=== PATIENT | female | born 2000 | race Two or more races ===

== ENCOUNTER 2023-01-03 13:17 | Emergency (ER) | payer OTHER ==
[2023-01-03 14:17] LABS: #Eosinphils 0.1 thou/uL (0.0-0.7); #Monocytes 0.6 thou/uL (0.11-0.59); #Neutrophils 7.3 thou/uL (1.40-6.50); %Basophils 0.4 % (0.0-1.0); %Eosinophils 0.7 % (0.0-10.0); %Lymphocytes 23.5 % (28.0-48.0); %Monocytes 5.4 % (0.0-4.0); %Neutrophils 69.7 % (31.0-61.0); Hemoglobin 15.2 g/dL (12.0-16.0); Mean Corpuscular HGB CONC 33.4 g/dL (32.0-36.0); Mean Corpuscular Volume 89.9 fl (78.0-98.0); Mean Platelet Volume 10.1 fL (7.4-10.4); Platelet Count 263 10x3/uL (130-400); Red Blood Cell (RBC) Count 5.06 mill/uL (4.00-5.20); White Blood Cell (WBC) Count 10.5 10x3/uL (4.8-10.8)
[2023-01-03 14:51] LABS: ALT (SGPT) 13 U/L (8-55); AST (SGOT) 23 U/L (5-34); Albumin 5.4 g/dL (3.5-5.0); Alkaline Phosphatase 102 U/L (40-100); Anion Gap 15 mmol/L (10-20); BUN (Urea Nitrogen) 11 mg/dL (7.0-18.7); Bilirubin, Total 0.2 mg/dL (0.2-1.2); Calc. Creatinine Clearance 0 mL/min (70-130); Calcium 10.1 mg/dL (7.8-10.44); Carbon Dioxide 20 mmol/L (22-29); Chloride 109 mmol/L (98-107); Estimated GFR 113; Globulin 3.5 g/dL (2.4-3.5); Glucose 82 mg/dL (70-105); Protein, Total 8.9 g/dL (6.0-8.3); Sodium 140 mmol/L (136-145)
== END 2023-01-03 15:22 | disposition home or self-care (01) ==
LOC: ERS 13:17
DX: R07.9 Chest pain, unspecified (principal)
CPT/HCPCS: 36415; 71045; 80053; 84484; 85025; 93005; 94760